=== PATIENT | female | born 1990 | race Caucasian/White ===

== ENCOUNTER 2024-10-06 09:45 | Emergency (ER) | payer BC, MEDICAID, SELFPAY ==
[2024-10-06 10:02] VITALS: BP 143/94; PULSE 93; RESP 20; TEMP 36.4; O2SAT 99
[2024-10-06 10:35] VITALS: BP 139/90
[2024-10-06 10:52] VITALS: BP 148/103; PULSE 87; RESP 15; O2SAT 99
[2024-10-06 11:58] VITALS: BP 130/88; PULSE 94; RESP 14; O2SAT 95
--- NOTE | 2024-10-06 12:56 | ED_ITS ---
HPI - Extremity Problem General Chief complaint: Extremity Problem,Nontraumatic Stated complaint: pain from carpal tunnel Time Seen by Provider: 10/06/24 12:02 History of Present Illness HPI Narrative: 34-year-old female approximately 19 weeks presenting to the emergency department for evaluation of bilateral wrist pain. She states she has longstanding carpal tunnel that flares up during her previous pregnancies and worsening during this . She has been taking Tylenol 650 mg last night and some topical creams without any relief of her symptoms. She has a strong family history of carpal tunnel in both her parents have had carpal tunnel release surgeries. She has not been evaluated for this previously. Denies any nauseousness, vomiting, abdominal pain, complications with the thus far. She was otherwise in her normal state of health. Follows regular with her OBGYN. She states that whenever her flare-up Pap and specially at night she has to wear wrist splints bilaterally and she gets paresthesias in her fingers that go away with time. Related Data Allergies Allergy/AdvReac Type Severity Reaction Status Date / Time No Known Allergies Allergy Severe Verified 10/06/24 10:52 Review of Systems Review of Systems: As reviewed above in HPI Exam Narrative: GENERAL: [Well-appearing, well-nourished, and in no acute distress.] HEAD: [Normocephalic, atraumatic.] EYES: [PERRLA and EOMI.] ENT: Nares clear, no rhinorrhea or epistaxis. Mucous membranes moist. NECK: Supple. CHEST: [Clear to auscultation. No respiratory distress.] HEART: [Regular rate and rhythm]. No murmur heard. [Normal peripheral pulses.] ABDOMEN: [Soft, nondistended], [nontender], [No rigidity or guarding] EXTREMITIES: Bilateral wrists have evidence of carpal tunnel with tense anterior compartments near the wrist joint, she has good range of motion, and good process control operator strength, able to move each digit at each major joint line. Symmetric symptoms both in both wrists. No overlying trauma, no skin discoloration. Capillary refill in each digit intact SKIN: Warm, dry, no rash. NEURO: [No focal deficits]. Alert and oriented [x3.] PSYCH: [Normal mood and affect.] Course Vital Signs Vital signs: Vital Signs Temperature 36.4 C 10/06/24 10:02 Pulse Rate 93 10/06/24 10:02 Respiratory Rate 20 10/06/24 10:02 Blood Pressure 143/94 H 10/06/24 10:02 Pulse Oximetry 99 10/06/24 10:02 Oxygen Delivery Room Air 10/06/24 10:02 Temperature 36.4 C 10/06/24 10:02 Pulse Rate 94 10/06/24 11:58 Respiratory Rate 14 10/06/24 11:58 Blood Pressure 130/88 10/06/24 11:58 Pulse Oximetry 95 10/06/24 11:58 Oxygen Delivery Room Air 10/06/24 10:02 MDM - Extremity (Nontraumatic) MDM Narrative Medical decision making narrative: 34-year-old female approximately 19 weeks presenting with bilateral carpal tunnel. She has a strong history of carpal tunnel but has never been evaluated for surgery. She took Tylenol last night for these symptoms and wear her wrist splints. She states that the pain is getting worse so she went to be evaluated. She has not tried anything else besides topical creams for the carpal tunnel. Her examination is very consistent with carpal tunnel with the bilateral tenderness in her wrist, tense compartments in the flexor retinaculum region but no overlying skin discoloration, distal neuro vasculature is intact, good process control operator strength, good capillary refill in each digit. She has normal vital signs with any concern. She states this happened during her last as well but this is worsening today. Patient states this is very consistent with her carpal tunnel does not want any further workup for this she just wants recommendations on treatment. She was given 1000 mg of Tylenol and 100 mg of gabapentin for neuropathy. She was instructed on appropriate regimen including 1000 mg Tylenol q.8 hours, 100 mg gabapentin will be prescribed t.i.d. p.r.n.. She was encouraged to follow-up with regular doctor and also referred to the local hand specialist for potential release surgery as warranted. Patient is safe for discharge home at this time and will follow-up with regular doctor and OBGYN. Discharge Plan Discharge Clinical Impression: Bilateral carpal tunnel syndrome, Second trimester Patient Disposition: Home, Self-Care Condition: Stable Instructions: Antibiotic Form, Carpal Tunnel Syndrome (DC), Carpal Tunnel Surgery (DC) Additional Instructions: Your symptoms are consistent with carpal tunnel syndrome bilaterally. Recommendations are to take 1000 mg of Tylenol extra-strength every 8 hours for inflammation and pain control in addition we will prescribe you gabapentin 100 mg to be taken every 8 hours as needed for breakthrough pain. This is a medication does affect the nervous system and can make some people drowsy but is not dangerous in . Will refer you to a hand specialist to evaluate you for potential carpal tunnel surgery. Continue wearing her wrist splints at night, return to the ER with any new or worsening concerns otherwise follow-up with regular doctors and OBGYN and specialist. Patient Language: Spanish Prescriptions: New gabapentin 100 mg capsule 100 mg PO TID PRN (Reason: pain, moderate) Qty: 30 0RF acetaminophen [Tylenol Extra Strength] 500 mg tablet 1,000 mg PO TID PRN (Reason: pain) Qty: 30 0RF Follow-up/Referrals: Diann Montes MD [Physician] - 1 Week (Bilateral carpal tunnel release) UNKNOWN,DOCTOR [Primary Care Provider] - Time of Disposition: 13:03
[2024-10-06] MEDS: GABAPENTIN 100 MG CAPSULE PO (13:06)
[2024-10-06] MEDS: ACETAMINOPHEN 500 MG TABLET 1000 MG PO (13:06)
[2024-10-06 13:15] VITALS: BP 136/86; PULSE 92; RESP 18; O2SAT 100
== END 2024-10-06 13:17 | disposition home or self-care (01) ==
PROVIDERS: Emergency Provider Student in an Organized Health Care Education/Training Program
DX: O26.892 Other specified pregnancy related conditions, second trimester (principal); G56.03 Carpal tunnel syndrome, bilateral upper limbs; Z3A.19 19 weeks gestation of pregnancy
CPT/HCPCS: 99283; A9270